=== PATIENT | female | born 1960 | race Caucasian/White ===

== ENCOUNTER → 2016-05-05 | Day surgery (SDC) | payer BC ==
--- NOTE | 2016-04-30 14:54 | HP ---
PREOPERATIVE HISTORY AND PHYSICAL: DATE OF SURGERY/ADMISSION: 05/05/16 [facility] DATE OF OFFICE VISIT/ENCOUNTER: 04/29/16 ATTENDING SURGEON: Joanie Burns MD PROCEDURE: Right index, middle, ring finger trigger releases. CHIEF COMPLAINT: Triggering of right index, middle, and ring fingers. 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 It bothers her when she uses spray bottles, wash bottles, syringes, and the computer which she has to do at work. There was no specific injury. She has to perform repeated motions with this hand at work and experiences the catching, clicking, and locking on a regular basis. She is interested in pursuing surgical intervention at this time for treatment of her trigger fingers. PAST MEDICAL HISTORY: 1. Psoriasis and psoriatic arthritis. 2. Hypertension. 3. Prediabetes. 4. Ulcerative colitis. 5. Spondylolisthesis. 6. Asthma. 7. GERD. 8. History of a concussion in 2014. PAST SURGICAL HISTORY: 1. Right de Quervain's release. 2. Right carpal tunnel release. 3. [place] teeth extraction. 4. Tubal ligation. MEDICATIONS: 1. Diclofenac sodium 1%, use as directed. 2. Diltiazem CD 180 mg daily. 3. Escitalopram oxalate 10 mg daily. 4. Folic acid 1 mg daily. 5. Leucovorin calcium 1 tab weekly. 6. Lisinopril-hydrochlorothiazide 20-12.5 mg 2 tabs daily. 7. Magnesium 500 mg 1 tab daily. 8. Metformin HCl ER 500 mg daily. 9. Methotrexate 2.5 mg 6 tabs per week. 10. Multivitamin daily. 11. Potassium chloride ER 8 mEq 1 tab daily. 12. Prilosec 10 mg 1 tab daily. 13. Riboflavin 50 mg daily. 14. Simponi 50 mg-0.5 mL, inject as directed. 15. Singulair 10 mg daily. 16. Zyrtec Allergy 10 mg daily. ALLERGIES: No known drug allergies. There is an allergy to LATEX. FAMILY MEDICAL HISTORY: Heart disease, COPD, lung/esophageal cancer, and rheumatoid arthritis. SOCIAL HISTORY: The patient is employed at [employer] as a earth science laboratory technician for [employer]. She denies tobacco use. She denies current illicit drug use ; however, she has been approved to soon begin medical marijuana. She does admit to drinking alcohol on a regular occasion. REVIEW OF SYSTEMS: General: Negative for fevers, chills, or night sweats. With anesthesia in the past, she reports feeling like she has awakened during procedures in the past. HEENT: Positive for headaches. Negative for lightheadedness or syncopal episodes. Integumentary: Positive for psoriasis with current lesions on bilateral hands. Cardiothoracic: Positive for hypertension. Negative for chest pain, palpitations, or edema. Pulmonary: Positive for asthma and shortness of breath with exertion. Negative for chronic cough or COPD. GI: Positive for ulcerative colitis with nausea, vomiting, diarrhea, constipation, and positive for GERD. : Negative for nocturia, urinary frequency, urgency, history of UTIs, or kidney problems. Musculoskeletal: Positive for current complaint. Positive for intermittent back pain related to spondylolisthesis. Negative for history of fractures. Neurological: Positive for history of concussion in 2015. Negative for paresthesias, numbness, history of seizure, stroke, or epilepsy. Endocrine: Positive for prediabetes. Negative for thyroid issues. Hematologic: Negative for easy bruising, anemia, excessive bleeding, or history of DVT. Infectious Disease: Negative for history of MRSA, hepatitis C, or HIV. PHYSICAL EXAMINATION GENERAL: Well-developed, well-nourished, 55-year-old female, in no acute distress. VITAL SIGNS: 5 feet 3 inches, weight 215 pounds, blood pressure 144/87, and pulse rate 68. HEENT: Normocephalic, atraumatic. Pupils are equal, round, and reactive to light. Extraocular movements are intact. Throat is clear. NECK: Supple. No palpable lymph nodes. PULMONARY: Lungs are clear to auscultation bilaterally. No wheezes, rales, or rhonchi. CARDIOTHORACIC: Regular rate and rhythm. S1, S2. No murmurs, rubs, or gallops. No edema. ABDOMEN: Positive bowel sounds, soft, nontender. MUSCULOSKELETAL: On exam of her right upper extremity and her hand, she has tenderness at the A1 syed of the index, middle, and ring fingers. She has difficulty making a full tight fist. She lacks a bit of extension of all 3 fingers. Neurovascular function is intact. She does have psoriatic lesions that cover the more proximal portion of her hand with some breaks in the skin. NEUROLOGIC: Alert and oriented x3. Cranial nerves II through XII are intact. Sensation is intact to light touch. IMPRESSION: Right hand index, middle, and ring finger trigger fingers. PLAN: The patient is scheduled to undergo right index, middle, and ring finger trigger release with Dr. Burns on 05/05/16. She will return to the office 10 to 14 days postop for followup and suture removal. A prescription for Ultracet was e-scribed to the patient's pharmacy for postoperative pain management. BASSAM PLATT [id number]/[facility] #: [id number] MTDD
[~2016-05-05] MED LIST: Buffered Lidocaine 1% SYR 3ML* 3 ML/SYR SYRINGE INTRADERM ONE; Lidocaine 1% INJ* 10 MG/ML 30 ML SDV ONE; Lidocaine 2% PF * 5 ML VIAL ONE; Midazolam* 1 MG/ML 2 ML VIAL (2 MG) ONE; Propofol* 10 MG/ML 20 ML BTL IV PUSH ONE; fentaNYL* 50 MCG/ML 2 ML VIAL (100 MCG VIAL) ONE
[2016-05-05 11:42] VITALS: BP 118/66
--- NOTE | 2016-05-06 01:17 | OP ---
DATE OF OPERATION: 05/05/16 [facility] DATE OF : 58 SURGEON: Joanie Burns MD PLASTIC PRESS MOLDER: BASSAM Diamond ANESTHESIOLOGIST: Dejon Vaca DO ANESTHESIA: Local MAC. PRE-OP DIAGNOSIS: Trigger finger right index, long, and ring fingers. POST-OP DIAGNOSIS: Trigger finger right index, long, and ring fingers. OPERATIVE PROCEDURE: Right index, long, and ring finger trigger release. ESTIMATED BLOOD LOSS: Zero. TOURNIQUET TIME: About 10 minutes. INDICATIONS: Patito is a 55-year-old female with locking and triggering of her index, long, and ring fingers of the right hand. She presents for trigger finger release. DESCRIPTION OF PROCEDURE: The patient was brought to the operating room, was given a sedation anesthetic, and a local infiltration with 10 cc of 1% plain lidocaine in the palm of her right hand. The skin of her right hand and forearm was prepped and draped in the usual sterile fashion. The hand and forearm were exsanguinated and the tourniquet elevated to 250 mmHg. A transverse incision was made centered over the A1 syed to the index, middle and long fingers, dissected bluntly through the subcutaneous tissue down to the three A1 pulleys. Each syed was incised longitudinally completely releasing the tendons, which were all in good condition. The wound was irrigated and the skin edges reapproximated with 4-0 nylon suture. The wound was dressed with Xeroform, 4x4, Webril, and an Carmelo wrap. The patient tolerated the procedure well and was brought to the recovery room in good condition. [id number]/[facility] #: [id number] [facility] HOSPITALMaribell
== END | disposition home or self-care (01) ==
LOC: OREAST 08:53
PROVIDERS: ATTEND Orthopaedic Surgery
DX: M65.321 Trigger finger, right index finger (principal); M65.341 Trigger finger, right ring finger; M65.331 Trigger finger, right middle finger; I10 Essential (primary) hypertension; E11.9 Type 2 diabetes mellitus without complications; L40.50 Arthropathic psoriasis, unspecified
CPT/HCPCS: J2250; J2704; J3010

== ENCOUNTER 2016-05-08 10:02 | Inpatient (IN) | payer BC ==
[2016-05-08] MEDS: oxyCODONE/Acetamin 5/325 MG* TAB PO PRN ×3 (10:54→20:25)
[2016-05-08 11:28] LABS: Hematocrit 40 % (35-47); Mean Corpuscular HGB Conc 33 g/dl (31-36); Mean Corpuscular Hemoglobin 30 pg (27-31); Mean Corpuscular Volume 91 fL (80-97); Mean Platelet Volume 10 um3 (7.4-10.4); Red Blood Count 4.32 10^6/ul (4.0-5.4); Red Cell Distribution Width 13 % (10.5-15); White Blood Count 14.5 10^3/ul (3.5-10.8)
[2016-05-08] MEDS: Morphine INJ* 2 MG/ML 1 ML SYRINGE IV PRN ×3 (11:54→18:49)
[2016-05-08] MEDS: Morphine INJ* 2 MG/ML 1 ML SYRINGE ONE ×2 (11:54→12:35)
[2016-05-08] MEDS ORDERED: Piperac/Tazob 3.375 gm in NS* 3.375 GM/100 ML BAG IVPB ONE (12:00)
[2016-05-08] MEDS ORDERED: Vancomycin per Pharmacy* NOTE FOLLOW UP PRN (12:01)
[2016-05-08] MEDS ORDERED: Vancomycin(*) 1,500 MG in NS 0.9% 250 ML* 250 ML IVPB SCH (12:30)
[2016-05-08 13:50] LABS: Erythrocyte Sed Rate 43 mm/Hr (0-30)
[2016-05-08] MEDS ORDERED: Vancomycin(*) 1,500 MG in NS 0.9% 250 ML* 250 ML IVPB ONE (14:00)
--- NOTE | 2016-05-08 14:33 | HP ---
HISTORY AND PHYSICAL: DATE OF ADMISSION: 05/08/16 HISTORY OF PRESENT ILLNESS: Patito is an active 55-year-old woman who is 3 days out from a transverse release of trigger fingers, right hand, numbers 2, 3, and 4. Yesterday, she was seen by her surgeon, who prescribed Keflex for postoperative pain and erythema, but today, she called me as the on-call physician and came in today with extreme pain. At this point, she appears to have some flexor tendon involvement of the middle and ring finger of the right hand and increased drainage from the wound. Because of her generalized immunocompromise status, she will be admitted for IV antibiotics, n.p.o. status , possible debridement. PROBLEM LIST: Includes: 1. Some endocarditis at age 1. 2. History of head contusion and concussion. 3. She has had psoriatic arthritis for many years, being followed by Dr[facility]. She says her blood glucose is borderline. 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 Otherwise medical history includes: 1. Hyperlipidemia. 2. Hypertension. 3. Anxiety. 4. Spondylosis. 5. Psoriatic arthritis. MEDICATIONS: Patito's medications are multiple includin. Tramadol. 2. Diltiazem 180 mg per day. 3. Lisinopril 20/12.5 mg 2 tabs daily. 4. Simponi 50 mg injections once a month, being held for the last 6 weeks. 5. Escitalopram 10 mg per day. 6. Metformin 500 mg per day. 7. Methotrexate 2.5 mg 6 tabs once per week. 8. Folic acid. 9. Zyrtec p.r.n. 10. Prilosec p.r.n. ALLERGIES: She denies drug allergies. PHYSICAL EXAMINATION GENERAL: She is in mild distress, tearing, and complaining of severe pain, right hand. VITAL SIGNS: Shows her to have a heart rate of 102, blood pressure 160/90, temperature 99.7. HEENT: Her oropharynx is clear. NECK: Supple. CHEST: Clear to auscultation in all lung wheeler. CARDIAC: Shows a regular rate and no S3, S4 noted. ABDOMEN: Distended, soft, nontender. EXTREMITIES: Show the right hand with a transverse palmar incision. Some mild dorsal edema. No tenderness dorsally. She has significant tenderness along the third and fourth digits, palmar aspect, and severe pain with any attempted passive extension of the third and fourth. The wound itself is puckered and there is slight drainage. Index finger and thumb did not appear to be involved. IMPRESSION: The patient with postoperative wound infection. In general, generalized immunocompromised patient. Plan will be admission for IV antibiotics, n.p.o. status, and possible debridement, right hand. [id number]/[facility] #: [id number] MTDD
[2016-05-08] MEDS ORDERED: Ketorolac INJ* 30 MG/ML 1 ML VIAL ONE (15:05)
[2016-05-08] MEDS: Ketorolac INJ* 30 MG/ML 1 ML VIAL IV PRN ×2 (15:16→21:29)
[2016-05-08] MEDS: ceFAZolin 2 GM PREMIX(*) 2 GM/50 ML BAG IVPB SCH (17:07)
[2016-05-08] MEDS ORDERED: Piperac/Tazob 3.375 gm in NS* 3.375 GM/100 ML BAG IVPB SCH (18:00)
[2016-05-09] MEDS: oxyCODONE/Acetamin 5/325 MG* TAB PO PRN ×5 (00:32→22:21)
[2016-05-09] MEDS: ceFAZolin 2 GM PREMIX(*) 2 GM/50 ML BAG IVPB SCH ×3 (00:35→16:10)
[2016-05-09] MEDS: Ketorolac INJ* 30 MG/ML 1 ML VIAL IV PRN ×4 (04:27→22:23)
[2016-05-09] MEDS ORDERED: Lidocaine 1% INJ* 10 MG/ML 30 ML SDV ONE (07:48)
[2016-05-09] MEDS ORDERED: Midazolam* 1 MG/ML 5 ML VIAL (5 MG) ONE (08:08)
[2016-05-09] MEDS ORDERED: fentaNYL* 50 MCG/ML 2 ML VIAL (100 MCG VIAL) ONE ×4 (08:08→09:38)
[2016-05-09] MEDS ORDERED: Midazolam* 1 MG/ML 2 ML VIAL (2 MG) ONE (08:31)
[2016-05-09] MEDS ORDERED: Propofol* 10 MG/ML 20 ML BTL IV PUSH ONE (08:47)
[2016-05-09] MEDS ORDERED: Ondansetron INJ* 2 MG/ML VIAL IV PRN (08:52)
[2016-05-09] MEDS ORDERED: Metoclopramide IV* 5 MG/ML 2 ML VIAL IV PRN (08:52)
[2016-05-09] MEDS ORDERED: Scopolamine 1.5 mg* PATCH TRANSDERM PRN (08:52)
[2016-05-09] MEDS ORDERED: Morphine INJ* 10 MG/ML 1 ML SYRINGE ONE (09:06)
[2016-05-09] MEDS ORDERED: oxyCODONE/Acetamin 5/325 MG* TAB ONE (09:07)
[2016-05-09] MEDS: Morphine INJ* 2 MG/ML 1 ML SYRINGE IV PRN ×6 (09:11→23:54)
[2016-05-09] MEDS ORDERED: Ketorolac INJ* 30 MG/ML 1 ML VIAL ONE (10:02)
[2016-05-10] MEDS: ceFAZolin 2 GM PREMIX(*) 2 GM/50 ML BAG IVPB SCH ×2 (00:20→07:52)
[2016-05-10] MEDS: oxyCODONE/Acetamin 5/325 MG* TAB PO PRN ×2 (03:41→08:02)
[2016-05-10] MEDS: Morphine INJ* 2 MG/ML 1 ML SYRINGE IV PRN ×2 (03:42→08:03)
[2016-05-10] MEDS: Ketorolac INJ* 30 MG/ML 1 ML VIAL IV PRN (05:04)
[2016-05-10 08:37] VITALS: BP 148/88
--- NOTE | 2016-06-26 01:46 | DS ---
DISCHARGE SUMMARY: DATE OF ADMISSION: 05/08/16 DATE OF DISCHARGE: 05/10/16 CHIEF COMPLAINT: Right hand pain. HISTORY OF PRESENT ILLNESS: Patito is a 55-year-old woman who had trigger finger releases and has developed a postop wound infection. She was admitted to the hospital for care of that. HOSPITAL COURSE: The patient was admitted to the hospital and was started on IV antibiotics. Some of her sutures were removed and then next day, she was brought to the operating room for I and D of the right hand. Postoperatively, she did very well. Her pain was well controlled and she was discharged to home with oral medication and appropriate antibiotics. She will follow up in my office in a couple of days for wound check and then start soaking her wound. The patient's symptoms were well controlled upon discharge. [id number]/[facility] #: [id number] MTDD
--- NOTE | 2016-06-26 01:55 | OP ---
DATE OF OPERATION: 05/09/16 - ROOM #333 DATE OF : 58 SURGEON: Joanie Burns MD STILL CLEANER: BASSAM Shelby ANESTHESIA: Local MAC. PRE-OP DIAGNOSIS: Postop wound infection of the right hand status post trigger finger release. POST-OP DIAGNOSIS: Postop wound infection of the right hand status post trigger finger release. OPERATIVE PROCEDURE: Right hand I and D. INDICATIONS: Patito is a 55-year-old woman who had trigger finger releases, a few days later developed marked pain and drainage from her wound. She presents for I and D. ESTIMATED BLOOD LOSS: Zero. TOURNIQUET TIME: About 25 minutes. DESCRIPTION OF PROCEDURE: The patient was brought to the operating room, was given a general anesthetic, placed in the supine position on the operating table with a tourniquet around her right upper arm. The hand was elevated and exsanguinated and the tourniquet elevated to 250 mmHg. The wound was irrigated copiously after cultures were obtained. It was loosely closed with 4-0 nylon suture over a small drain and then dressed with Xeroform, 4x4, Webril, and an Carmelo wrap. The patient tolerated the procedure well, was brought to the recovery room in good condition. [id number]/[facility] #: [id number] MTDMaribell
== END 2016-05-10 09:25 | disposition home or self-care (01) | DRG 711 ==
LOC: SSU 10:34 → UNDODISIN 05-09 11:30
PROVIDERS: ADMIT Orthopaedic Surgery; ATTEND Orthopaedic Surgery
PROC: 0J9J00Z Drainage of Right Hand Subcutaneous Tissue and Fascia with Drainage Device, Open Approach (ICD-10-PCS; principal; 2016-05-09 08:00)
DX: T81.4XXA Infection following a procedure, initial encounter (principal); L40.50 Arthropathic psoriasis, unspecified; I10 Essential (primary) hypertension; B95.61 Methicillin susceptible Staphylococcus aureus infection as the cause of diseases classified elsewhere; Y83.8 Other surgical procedures as the cause of abnormal reaction of the patient, or of later complication, without mention of misadventure at the time of the procedure; Y92.9 Unspecified place or not applicable; E78.5 Hyperlipidemia, unspecified; F41.9 Anxiety disorder, unspecified; M47.9 Spondylosis, unspecified; Z79.1 Long term (current) use of non-steroidal anti-inflammatories (NSAID); Z79.899 Other long term (current) drug therapy
CPT/HCPCS: 36415; 85025; 85652; 86140; 87070; 87077; 87186; 87205; 87640; 87641; A9270-GY; J0690; J1885; J2001; J2250; J2270; J2543; J2704; J3010; J3370

== ENCOUNTER 2016-10-06 07:23 | Emergency (ER) | payer BC ==
[2016-10-06 07:38] VITALS: BP 175/92
--- NOTE | 2016-10-06 08:05 | UC ---
sadia Gonzalez Timothy, scribed for Cristina Murdock MD on 10/06/16 at 0746 . FLU HPI - HPI Summary HPI Summary: Patito Spencer is a 55 yo female presenting to [facility] with cough, wheeze for the past 2.5 weeks with progression over last 2 days. She states there is 3/10 discomfort in her lungs with movement, and she also has productive cough with clear/white sputum. Pt reports 4/10 AGUAYO but denies fever, chills, blood in her sputum, or rash. She has some mild sore throat and bilateral ear pain. She claims a Hx of pleurisy, and that her Sx currently feel similar to what she is experiencing now. She has self-medicated with Tylenol and other OTC cough medications with temporary relief. Pt with a h/o asthma - She states her Sx began after exposure to a perfume worn by a person. She has a nebulizer at home which she uses 2-3x per day, but is out of albuterol nebules. Pt has been MDI which she has been using. She states that while she does not smoke tobacco, she was raised in a household with smoke exposure. Pt is on oral steroid for UC. Her MHx includes endocarditis, heart murmur, HTN, asthma, chronic bronchitis, GERD, ulcerative colitis, tubal ligation, psoriatic arthritis, DM, depression, anxiety. Pt medication list reviewed this visit. - History of Current Complaint Stated Complaint: CONGESTION Time Seen by Provider: 10/06/16 07:48 Hx Obtained From: Patient Onset/Duration: Gradual Onset, Lasting Weeks Severity Currently: Moderate Severity Initially: Moderate Pain Intensity: 4 Pain Scale Used: 0-10 Numeric - 4/10 AGUAYO, 3/10 lung discomfort Associated Signs & Symptoms: Positive: Cough, Sore Throat, Nasal Congestion, Headache. Negative: Fever, F/C, Vomiting, Diarrhea - Allergy/Home Medications Allergies/Adverse Reactions: Allergies Allergy/AdvReac Type Severity Reaction Status Date / Time Latex Allergy Severe Anaphylatic Verified 10/06/16 07:38 Shock Molds & Smuts Allergy Severe Congestion Verified 10/06/16 07:38 trees Allergy Congestion Uncoded 10/06/16 07:38 Home Medications: Home Medications Budesonide [Entocort EC] 3 tab PO DAILY 10/06/16 [History Confirmed 10/06/16] Cbd Oil 0.4 mg PO DAILY 10/06/16 [History Confirmed 10/06/16] Hydroxychloroquine TAB* [Plaquenil TAB*] 2 tab PO DAILY 10/06/16 [History Confirmed 10/06/16] Mesalamine (NF) [Lialda (NF)] 4 tab PO DAILY 10/06/16 [History Confirmed ] Phenylephrine-Guaifenesin [Guaifenesin/Phenylephrine 10-400 mg] 2 tab PO Q4HR PRN 10/06/16 [History Confirmed 10/06/16] Potassium Chloride [Klor-Con Sprinkle] 1 tab PO DAILY 10/06/16 [History Confirmed 10/06/16] PMH/Surg Hx/FS Hx/Imm Hx Previously Healthy: No Endocrine History: Diabetes - borderline Cardiovascular History: Cardiac Disease, Hypertension, Other - murmur Other Cardiovascular History: murmur Respiratory History: Asthma, Bronchitis, Other Other Respiratory History: pleurisy GI/ History: Gastroesophageal Reflux, Ulcer Psychological History: Anxiety, Depression - Surgical History Surgical History: Yes Surgery Procedure, Year, and Place: wisdom teeth 1978 [facility]; tubal ligation 1992 [facility]; carpal tunnel 2003 [facility]; de quervain tendonitis 2005 [facility]; NERVE ABLATION - SPINAL; TONSILECTOMY 2014. 34 COLONOSCOPIES; Trigger finger release- right hand - Family History Known Family History: Positive: Cardiac Disease - father - 5 [place], Diabetes, Respiratory Disease - COPD, Other - breast CA, RA, OA, - Social History Alcohol Use: Weekly Alcohol Amount: 2-3times week Substance Use Type: Marijuana Substance Use Comment - Amount & Last Used: Medical Smoking Status (MU): Never Smoked Tobacco Have You Smoked in the Last Year: No - Immunization History Most Recent Influenza Vaccination: 03/2015 Most Recent Tetanus Shot: 2016 Most Recent Pneumonia Vaccination: 2016 Review of Systems Constitutional: Negative Skin: Other - left thumb laceration Eyes: Negative ENT: Sore Throat, Ear Ache, Nasal Discharge - clear, thick, Sinus Congestion Respiratory: Cough - productive, Other - lung discomfort with breathing Cardiovascular: Negative Gastrointestinal: Negative Genitourinary: Negative Motor: Negative Neurovascular: Negative Musculoskeletal: Negative Neurological: Negative Psychological: Negative All Other Systems Reviewed And Are Negative: Yes Physical Exam Triage Information Reviewed: Yes Appearance: Well-Appearing, No Pain Distress, Well-Nourished Vital Signs: Initial Vital Signs Temp 97.8 F 10/06/16 07:28 Pulse 71 10/06/16 07:28 Resp 20 10/06/16 07:28 BP 175/92 10/06/16 07:28 Pulse Ox 99 10/06/16 07:28 Vital Signs Reviewed: Yes Eye Exam: Normal Eyes: Positive: Conjunctiva Clear ENT: Positive: TMs normal - turbinates inflammed and boggy + PND No exudate, no erythema Neck exam: Normal Neck: Positive: Supple, Nontender, No Lymphadenopathy Respiratory Exam: Normal Respiratory: Positive: Chest non-tender, Normal breath sounds, Wheezing - scattered wheeze coarse cough No accessory muscle use speaking full,easy sentences Cardiovascular Exam: Normal Cardiovascular: Positive: RRR, No Murmur, Pulses Normal Abdominal Exam: Normal Abdomen Description: Positive: Nontender, No Organomegaly, Soft Bowel Sounds: Positive: Present Musculoskeletal Exam: Normal Neurological Exam: Normal Neurological: Positive: Alert Psychological Exam: Normal Skin Exam: Normal Flu Course/Dx - Course Course Of Treatment: Jacquelyn Spencer is a 55 yo female presenting to [facility] with nasal discharge, cough for the past 2.5 weeks, gradually getting thicker accompanied by productive cough, mild sore throat, mild bilateral ear pain, 4/10 AGUAYO, and 3/ 10 lung discomfort with movement. Pt with h/o asthma, on steroids and immunosuppressant for UC. abx. albuterol secretion hygeine. pcp f/u. return prn - Differential Dx/Diagnosis Differential Diagnosis/HQI/PQRI: Bronchitis, Other - pleurisy Provider Diagnoses: Bronchitis Discharge - Discharge Plan Condition: Stable Disposition: HOME Prescriptions: Albuterol 2.5MG/3ML (0.083%)* [Ventolin 2.5 MG/3 ML NEB.GALO*] 2.5 mg INH Q4H PRN #30 neb.galo PRN Reason: Wheezing Azithromycin TAB* [Zithromax TAB (Z-AMY) 250 mg #6 tabs] 2 tab PO .TODAY, THEN 1 DAILY #1 amy Patient Education Materials: Acute Bronchitis (ED) Referrals: Silvia Leonardo NP [Primary Care Provider] - 2 Days Additional Instructions: - Stay well hydrated - drink plenty of non-alcoholic, non- caffinated beverages - Take antibiotics as prescribed until gone - After you have been on antibiotics for 2 days, change your toothbrush and your pillowcase - Okay to take over the counter cough and cold medications. Okay to take tylenol every 6 hours as needed for discomfort - Use your albuterol every 4-6 for wheezing Please follow up with your primary care physician regarding your visit to urgent care today. Return to urgent care or the emergency department with any questions or concerns. The documentation as recorded by the sadia alcaraz Timothy accurately reflects the service I personally performed and the decisions made by , Cristina Murdock MD.
== END 2016-10-06 08:12 | disposition home or self-care (01) ==
LOC: UCEAST 07:23
DX: J20.9 Acute bronchitis, unspecified (principal); J42 Unspecified chronic bronchitis; R01.1 Cardiac murmur, unspecified; I38 Endocarditis, valve unspecified; I10 Essential (primary) hypertension; J45.909 Unspecified asthma, uncomplicated; K21.9 Gastro-esophageal reflux disease without esophagitis; K51.90 Ulcerative colitis, unspecified, without complications; L40.50 Arthropathic psoriasis, unspecified; E11.9 Type 2 diabetes mellitus without complications; F41.8 Other specified anxiety disorders; Z79.51 Long term (current) use of inhaled steroids
CPT/HCPCS: 99212; G0463

== ENCOUNTER 2016-10-08 10:12 | Emergency (ER) | payer BC ==
--- NOTE | 2016-10-08 10:50 | UC ---
Respiratory Complaint HPI - HPI Summary HPI Summary: Approx 2 weeks ago started having nasal congestion, asthma symptoms, cough, and increasing mucus production. Pt reports "chronic bronchitis" though she has been doing much better since her tonsillectomy. Denies fever. Seen here 2 days ago and put on nebulized albuterol and z-melissa. "Lung pain" and cough are improved , but pt feels worse "in every other way." Also feeling dizzy/vertigo, thinks she has fluid in her ears. - History of Current Complaint Chief Complaint: UCRespiratory Stated Complaint: CONGESTION COUGH Time Seen by Provider: 10/08/16 10:29 Hx Obtained From: Patient ?: No Onset/Duration: Gradual Onset, Lasting Weeks Timing: Constant Severity Initially: Mild Severity Currently: Moderate Character: Cough: Productive Aggravating Factors: Deep Breaths, Recumbent Position Alleviating Factors: Upright Position Associated Signs And Symptoms: Positive: Pleuritic Chest Pain, Wheezing, URI, Nasal Congestion. Negative: Fever, Chills - Allergies/Home Medications Allergies/Adverse Reactions: Allergies Allergy/AdvReac Type Severity Reaction Status Date / Time Latex Allergy Severe Anaphylatic Verified 10/06/16 07:38 Shock Molds & Smuts Allergy Severe Congestion Verified 10/06/16 07:38 trees Allergy Congestion Uncoded 10/06/16 07:38 PMH/Surg Hx/FS Hx/Imm Hx Endocrine History: Diabetes, Dyslipidemia Respiratory History: COPD, Asthma GI/ History: Other - UC Other GI/ History: uc - Surgical History Surgical History: Yes Surgery Procedure, Year, and Place: wisdom teeth 1978 [facility]; tubal ligation 1992 [facility]; carpal tunnel 2003 [facility]; de quervain tendonitis 2005 [facility]; NERVE ABLATION - SPINAL; TONSILECTOMY 2014. 33 COLONOSCOPIES; Trigger finger release- right hand - Family History Known Family History: Positive: Cardiac Disease - father - 5 [place], Diabetes, Respiratory Disease - COPD, Other - breast CA, RA, OA, - Social History Lives: With Family Alcohol Use: Weekly Alcohol Amount: 2-3times week Substance Use Type: Marijuana Substance Use Comment - Amount & Last Used: Medical Smoking Status (MU): Never Smoked Tobacco Have You Smoked in the Last Year: No - Immunization History Most Recent Influenza Vaccination: 03/2015 Most Recent Tetanus Shot: 2016 Most Recent Pneumonia Vaccination: 2016 Review of Systems Constitutional: Fatigue Skin: Negative Eyes: Negative ENT: Sore Throat, Nasal Discharge Respiratory: Cough Cardiovascular: Negative Gastrointestinal: Negative Genitourinary: Negative Motor: Negative Neurovascular: Negative Musculoskeletal: Negative Neurological: Negative Psychological: Negative All Other Systems Reviewed And Are Negative: Yes Physical Exam Triage Information Reviewed: Yes Appearance: Well-Appearing, Obese Vital Signs: Initial Vital Signs Temp 98 F 10/08/16 10:14 Pulse 87 10/08/16 10:14 Resp 22 10/08/16 10:14 BP 183/115 10/08/16 10:14 Pulse Ox 98 10/08/16 10:14 Vital Signs Reviewed: Yes Eye Exam: Normal Eyes: Positive: Conjunctiva Clear ENT: Positive: Hearing grossly normal, Pharynx normal, Nasal congestion, TMs normal. Negative: Nasal drainage, Tonsillar swelling - s/p tonsillectomy Dental Exam: Normal Neck exam: Normal Neck: Positive: Supple, Nontender, No Lymphadenopathy Respiratory Exam: Other - good air movement, no cough noted Respiratory: Positive: Chest non-tender, Lungs clear, Normal breath sounds, No respiratory distress, No accessory muscle use Cardiovascular Exam: Normal Cardiovascular: Positive: RRR, No Murmur Musculoskeletal Exam: Normal Neurological Exam: Normal Neurological: Positive: Alert Psychological Exam: Normal Skin Exam: Normal UC Diagnostic Evaluation - Laboratory O2 Sat by Pulse Oximetry: 98 Respiratory Course/Dx - Differential Dx/Diagnosis Provider Diagnoses: bronchitis. asthma exacerbation. elevated blood pressure due to medication Discharge - Discharge Plan Condition: Stable Disposition: HOME Prescriptions: Pseudoephedrine-Guaifenesin [Mucinex D 60-600 mg] 1 tab PO BID #20 tab predniSONE TAB* [Deltasone TAB*] 50 mg PO DAILY #3 tab Patient Education Materials: Acute Bronchitis (ED), Wheezing (ED) Referrals: Silvia Leonardo NP [Primary Care Provider] - Additional Instructions: Call or return if you develop increasing fever, shortness of breath, chest pain , bloody sputum, or otherwise worsen. If you have not improved at all after several days, contact your primary care physician or return here. YOU CAN CALL AND LEAVE ME A MESSAGE ON WEDNESDAY OR WEDNESDAY IF YOU DO NOT HAVE ADEQUATE IMPROVEMENT WITH THE ORAL STEROIDS. I WILL CONSIDER CHANGING YOUR ANTIBIOTIC IF THAT HAPPENS.
--- NOTE | 2016-10-08 11:24 | RAD ---
INDICATION: Cough pain for aspiration for 2 weeks. COMPARISON: Comparison is made with prior study from June 08, 2012. TECHNIQUE: Dual-energy PA and lateral views of the chest were obtained. FINDINGS: The heart is within normal limits in size. Mediastinal and hilar contours appear within normal limits. The lungs are clear. No pleural effusion is present. IMPRESSION: NO EVIDENCE FOR ACTIVE CARDIOPULMONARY DISEASE.
[2016-10-08 11:36] VITALS: BP 175/100
== END 2016-10-08 11:36 | disposition home or self-care (01) ==
LOC: UCEAST 10:12
DX: J40 Bronchitis, not specified as acute or chronic (principal); J45.901 Unspecified asthma with (acute) exacerbation; J44.9 Chronic obstructive pulmonary disease, unspecified; R03.0 Elevated blood-pressure reading, without diagnosis of hypertension; E11.9 Type 2 diabetes mellitus without complications; E78.5 Hyperlipidemia, unspecified
CPT/HCPCS: 71020; 99212; G0463

== ENCOUNTER 2017-08-30 18:07 | Emergency (ER) | payer BC, OTHER ==
[2017-08-30 18:20] VITALS: BP 177/90
--- NOTE | 2017-08-30 18:33 | UC ---
Throat Pain/Nasal Efraín HPI - HPI Summary HPI Summary: 56 y/o female presents to the urgent care c/o dry cough w/ nasal congestion and yellowish nasal discharge for the past week. Pt reports Hx asthma and she had mild wheezing yesterday. She has been doing the nebulizer Tx to alleviate wheezing and cough. Pt state +PND and cough worsen since 08/26/5017 and has been persistent that she thinks it is exacerbating her asthma. Pt has not taking her BP medication today. Pt had low grade fever at the beginning of symptoms. Pt has taking MUcinex and Tylenol PO to alleviate symptoms. Pt denies SOB, chest pain , abdominal pain, N/V/D. - History of Current Complaint Chief Complaint: UCGeneralIllness Stated Complaint: SINUS CONGESTION Time Seen by Provider: 08/30/17 18:24 Hx Obtained From: Patient ?: No - menopausal Onset/Duration: Gradual Onset, Lasting Weeks Severity: Mild Pain Intensity: 4 Pain Scale Used: 0-10 Numeric Cough: Nonproductive Associated Signs & Symptoms: Positive: Wheezing, Sinus Discomfort, Nasal Discharge - yellowish Related History: Seasonal Allergies - Epiglottits Risk Factors Epiglottis Risk Factors: Negative - Allergies/Home Medications Allergies/Adverse Reactions: Allergies Allergy/AdvReac Type Severity Reaction Status Date / Time Latex, Natural Rubber Allergy Congestion Verified 08/30/17 18:21 mold Allergy Congestion Verified 08/30/17 18:21 trees Allergy Congestion Uncoded 05/26/17 10:47 Home Medications: Home Medications Ustekinumab [Stelara] 90 mg IM MONTHLY 08/30/17 [History Confirmed 08/30/17] PMH/Surg Hx/FS Hx/Imm Hx Previously Healthy: Yes Other Endocrine History: RA Cardiovascular History: Hypertension Respiratory History: Asthma GI/ History: Gastroesophageal Reflux Psychological History: Anxiety, Depression - Surgical History Surgical History: Yes Surgery Procedure, Year, and Place: wisdom teeth 1978 [facility]; tubal ligation 1992 [facility]; carpal tunnel 2003 [facility]; de quervain tendonitis 2005 [facility]; NERVE ABLATION - SPINAL; TONSILECTOMY 2014. 34 COLONOSCOPIES; Trigger finger release- right hand - Family History Known Family History: Positive: Cardiac Disease - father - 5 [place], Diabetes, Respiratory Disease - COPD, Other - breast CA, RA, OA, - Social History Occupation: Employed Full-time Lives: With Family Alcohol Use: Weekly Alcohol Amount: 2-3times week Substance Use Type: Marijuana Substance Use Comment - Amount & Last Used: Medical Smoking Status (MU): Never Smoked Tobacco Have You Smoked in the Last Year: No - Immunization History Most Recent Influenza Vaccination: 03/2015 Most Recent Tetanus Shot: 2016 Most Recent Pneumonia Vaccination: 2016 Review of Systems Constitutional: Negative Skin: Negative Eyes: Negative ENT: Nasal Discharge - yellowish, Sinus Congestion, Sinus Pain/Tenderness Respiratory: Cough - dry, Other - wheezing Cardiovascular: Negative Gastrointestinal: Negative Genitourinary: Negative Motor: Negative Neurovascular: Negative Musculoskeletal: Negative Neurological: Negative Psychological: Negative Is Patient Immunocompromised?: No All Other Systems Reviewed And Are Negative: Yes Physical Exam - Summary Physical Exam Summary: Vital Signs Reviewed: Yes General: well developed, well nourished female sitting in the examining table w/ o any apparent distress Eyes: Positive: Conjunctiva Clear - PERRLA, EOMI, fundi grossly normal ENT: Positive: Normal ENT inspection, Hearing grossly normal, Pharynx normal, Nasal congestion - edematous and erythematous nasal mucosa, Nasal drainage - yellowish drainage, Positive tenderness over the frontal and maxillary sinuses.+ yellowish PND. TMs normal. Negative: Tonsillar swelling, Tonsillar exudate Neck: Positive: Supple, Nontender, No Lymphadenopathy Respiratory: no orthopnea or dyspnea. Able to speak in full sentences, no retractions or accessory muscle use, no tripod position, stridor, or head bobbing. Positive breath sounds bilaterally, mild wheezing in the anterior upper lung , no rhonchi, rales or crackles. Cardiovascular: Positive: RRR, No Murmur, Pulses Normal, Brisk Capillary Refill Abdomen Description: Positive: Nontender, No Organomegaly, Soft. Negative: CVA Tenderness (R), CVA Tenderness (L) Bowel Sounds: Positive: Present Musculoskeletal Exam: Normal Musculoskeletal: Positive: Strength Intact, ROM Intact, No Edema Neurological Exam: Normal Psychological Exam: Normal Skin Exam: Normal Triage Information Reviewed: Yes Vital Signs: Initial Vital Signs Temp 97.6 F 08/30/17 18:14 Pulse 90 08/30/17 18:14 Resp 18 08/30/17 18:14 BP 177/90 08/30/17 18:14 Pulse Ox 99 08/30/17 18:14 Throat Pain/Nasal Course/Dx - Course Course Of Treatment: 56 y/o female presents to the urgent care c/o dry cough w/ nasal congestion and yellowish nasal discharge for the past week. Pt reports Hx asthma and she had mild wheezing yesterday. She has been doing the nebulizer Tx to alleviate wheezing and cough. Pt state +PND and cough worsen since 08/26/5017 and has been persistent that she thinks it is exacerbating her asthma. Pt has not taking her BP medication today. Pt had low grade fever at the beginning of symptoms. Pt has taking MUcinex and Tylenol PO to alleviate symptoms. Pt denies SOB, chest pain , abdominal pain, N/V/D.Hx obtained. Pt w/ acute bacterial sinusitis and mild anterior left lung mild wheezing on examination. Pt did an Albuterol Nebulizer Tx about 1hr ago. O2Sat:99%. Pt given Prednisone PO and Doxycycline PO at the clinic . pt tolerated well medications. Pt Rx similar medications and also Rx Tessalon tabs PO and Flonase nasal spray and advised to continue w/ Nebulizer Tx to alleviate cough and wheezing. Pt's BP is elevated today advised to decrease salt in diet, monitor BP and f/u with PCP for further management. Patient recommended to return to the clinic or go to the nearest ER if symptoms do not improve or worsen. Patient understood and agreed w/ plan of care. - Differential Dx/Diagnosis Differential Diagnosis/HQI/PQRI: Sinusitis, URI, Other - pneumonia, bronchitis, asthma exacerbation Provider Diagnoses: 1-Acute Asthma exacerbation. 2-Acute bacterial sinusitis Discharge - Sign-Out/Discharge Documenting (check all that apply): Discharge/Admit/Transfer - D/c home - Discharge Plan Condition: Stable Disposition: HOME Prescriptions: Benzonatate CAP* [Tessalon 100 MG CAP*] 100 mg PO TID #21 cap DOXYcycline CAP(*) [DOXYcycline 100MG CAP(*)] 100 mg PO BID #19 cap Fluticasone NASAL SPRAY 50MCG* [Flonase NASAL SPRAY 50MCG*] 2 spray BOTH NARES DAILY #1 btl predniSONE TAB* [Deltasone TAB*] 20 mg PO DAILY #8 tab Patient Education Materials: Asthma (ED), Sinusitis (ED) Referrals: Silvia Leonardo MANAGER OF RADIOLOGY [Primary Care Provider] - 3 Days Additional Instructions: 1-Please take full course of antibiotic to avoid resistance. 2-Use saline drops and flonase nasal spray to clear your sinuses 3-Take Tessalon PO tabs as directed and continue w/ you nebulizer treatments to alleviate cough. Increase fluid intake, rest and eat well. 4- If symptoms worsen or your develop SOB with fever and severe wheezing please go immediately to the ER further evaluation and treatment. 5- F/u with your PCP in 3 days if not improvement of symptoms for further management. 6-Your BP is elevated today. please decrease salt in your diet, monitor BP and if it continues to be elevated please f/u with your PCP for further management - Billing Disposition and Condition Condition: STABLE Disposition: HOME
[2017-08-30] MEDS ORDERED: predniSONE TAB* 20 MG PO ONE (18:50)
[2017-08-30] MEDS ORDERED: DOXYcycline CAP(*) 100 MG PO ONE (18:50)
== END 2017-08-30 19:20 | disposition home or self-care (01) ==
LOC: UCEAST 18:07
DX: J45.901 Unspecified asthma with (acute) exacerbation (principal); J01.90 Acute sinusitis, unspecified; B96.89 Other specified bacterial agents as the cause of diseases classified elsewhere; I10 Essential (primary) hypertension
CPT/HCPCS: 99212; A9270-GY; G0463; J7512

== ENCOUNTER 2017-10-25 08:58 | Emergency (ER) | payer BC, OTHER ==
--- NOTE | 2017-10-25 09:09 | UC ---
Respiratory Complaint HPI - HPI Summary HPI Summary: 56 yo female presents with cough for the last 3 days. She tells me that she has a hx of bad asthma and bad allergies. She underwent allergy shots for 5 years, but stopped them about 6 months ago and has been battling issues with bronchitis /asthma ever since. Most times her symptoms are managed at home with inhalers, OTC medications, and her nebulizer, but this time she says that her symptoms are improving for a short time but then quickly returning. She said she feels fine other than the cough and mild wheezing. She denies fever, chills, sore throat, chest pain, abdominal pain, n/v. - History of Current Complaint Stated Complaint: COUGH,CONGESTED Time Seen by Provider: 10/25/17 09:04 Hx Obtained From: Patient Onset/Duration: Gradual Onset Severity Currently: None Character: Cough: Nonproductive - Allergies/Home Medications Allergies/Adverse Reactions: Allergies Allergy/AdvReac Type Severity Reaction Status Date / Time Latex, Natural Rubber Allergy Congestion Verified 10/25/17 09:11 mold Allergy Congestion Verified 10/25/17 09:11 trees Allergy Congestion Uncoded 10/25/17 09:11 PMH/Surg Hx/FS Hx/Imm Hx - Additional Past Medical History Additional PMH: Allergies psoriatic arthritis. Endocrine History: Diabetes Cardiovascular History: Hypertension Respiratory History: Asthma - Surgical History Surgical History: Yes Surgery Procedure, Year, and Place: wisdom teeth 1978 [facility]; tubal ligation 1992 [facility]; carpal tunnel 2004 [facility]; de quervain tendonitis 2005 [facility]; NERVE ABLATION - SPINAL; TONSILECTOMY 2014. 33 COLONOSCOPIES; Trigger finger release- right hand - Family History Known Family History: Positive: Cardiac Disease - father - 5 [place], Diabetes, Respiratory Disease - COPD, Other - breast CA, RA, OA, - Social History Occupation: Employed Full-time Lives: With Family Alcohol Use: Weekly Alcohol Amount: 2-3times week Substance Use Type: Marijuana Substance Use Comment - Amount & Last Used: Medical Smoking Status (MU): Never Smoked Tobacco Have You Smoked in the Last Year: No - Immunization History Most Recent Influenza Vaccination: 03/2015 Most Recent Tetanus Shot: 2016 Most Recent Pneumonia Vaccination: 2016 Review of Systems Constitutional: Negative Skin: Negative Eyes: Negative ENT: Negative Respiratory: Shortness Of Breath, Cough Cardiovascular: Negative Gastrointestinal: Negative Neurovascular: Negative Neurological: Negative Psychological: Negative All Other Systems Reviewed And Are Negative: Yes Physical Exam - Summary Physical Exam Summary: GENERAL: NAD. WDWN. No pain distress. SKIN: No rashes, sores, lesions, or open wounds. HEENT: Head: AT/NC Eyes: Conjunctiva clear without inflammation or discharge. Ears: Hearing grossly normal. TMs intact, no bulging, erythema, or edema. Nose: Nasal mucosa pink and moist. NTTP maxillary and frontal sinus. Throat: Posterior oropharynx without exudates, erythema, or tonsillar enlargement. Uvula midline. NECK: Supple. Nontender. No lymphadenopathy. CHEST: Mild wheezing throughout. No r/r. No accessory muscle use. Breathing comfortably and in no distress. CV: RRR. Without m/r/g. Pulses intact. Brisk cap refill. NEURO: Alert. CN II-XII grossly intact. PSYCH: Age appropriate behavior. Triage Information Reviewed: Yes Vital Signs: Vital Signs: Temp Pulse Resp BP Pulse Ox 99.5 F 79 20 138/79 97 10/25/17 09:05 10/25/17 09:05 10/25/17 09:05 10/25/17 09:05 10/25/17 09:05 Vital Signs Reviewed: Yes Respiratory Course/Dx - Course Course Of Treatment: She declined CXR and nebulizer treatment in the clinic. She says that, in the past, prednisone in addition to her at home treatments will resolve her symptoms. Rx for prednisone, refill of nebulizer solution, and cough syrup at bedtime. Advised to f/u if symptoms persist or worsen. - Differential Dx/Diagnosis Provider Diagnoses: Asthma exacerbation. Bronchitis Discharge - Sign-Out/Discharge Documenting (check all that apply): Patient Departure - Discharge Plan Condition: Stable Disposition: HOME Prescriptions: Albuterol 2.5MG/3ML (0.083%)* [Ventolin 2.5 MG/3 ML NEB.GALO*] 2.5 mg INH Q6H PRN #30 neb.galo PRN Reason: Sob/Wheezing Codeine Phosphate/Guaifenesin [Guaifen-Codeine 100-10 mg/5 ml] 5 ml PO BEDTIME PRN #35 ml MDD 5mL PRN Reason: Cough predniSONE [Prednisone 20 MG TAB] 20 mg PO DAILY #12 tablet Patient Education Materials: Asthma (DC) Referrals: Silvia Leonardo NP [Primary Care Provider] - Additional Instructions: If you develop a fever, shortness of breath, chest pain, new or worsening symptoms - please call your PCP or go to the ED. - Billing Disposition and Condition Condition: STABLE Disposition: Home
[2017-10-25 09:10] VITALS: BP 138/79
== END 2017-10-25 09:27 | disposition home or self-care (01) ==
LOC: UCEAST 08:58
DX: J45.901 Unspecified asthma with (acute) exacerbation (principal); Z91.048 Other nonmedicinal substance allergy status; E11.9 Type 2 diabetes mellitus without complications; I10 Essential (primary) hypertension; Z91.040 Latex allergy status
CPT/HCPCS: 99212; G0463

== ENCOUNTER 2018-03-07 12:02 | Emergency (ER) | payer BC, OTHER ==
[2018-03-07 12:29] VITALS: BP 139/86
--- NOTE | 2018-03-07 13:37 | ED ---
Throat Pain/Nasal Congestion - HPI Summary HPI Summary: 57-year-old female presents with sinus congestion for the past week. She states her symptoms have gotten worse. States she has to sleep sitting up due to the postnasal drip. She states she is occasional wheezing due to her asthma. She has a cough. She admits to sore throat and ear pain. She states it feels like pressure in the ears. She admits to headache is worse when she leans forward. She has been using Mucinex and Sudafed. She states she has a history of sinus infections of nosebleeds. - History of Current Complaint Chief Complaint: UCGeneralIllness Time Seen by Provider: 03/07/18 13:30 - Allergies/Home Medications Allergies/Adverse Reactions: Allergies Allergy/AdvReac Type Severity Reaction Status Date / Time Latex, Natural Rubber Allergy Congestion Verified 03/07/18 12:30 mold Allergy Congestion Verified 03/07/18 12:30 trees Allergy Congestion Uncoded 03/07/18 12:30 Home Medications: Home Medications Linagliptin (NF) [Tradjenta (NF)] 5 mg PO DAILY 03/07/18 [History Confirmed 06/20] Potassium Citrate [Potassium Citrate ER] 540 mg PO DAILY WITH MEAL 03/07/18 [ History Confirmed 03/07/18] Rosuvastatin Calcium [Crestor] 10 mg PO DAILY WITH MEAL 03/07/18 [History Confirmed 03/07/18] Simvastatin [Zocor] 20 mg PO DAILY WITH MEAL 03/07/18 [History Confirmed ] PMH/Surg Hx/FS Hx/Imm Hx Endocrine/Hematology History: Reports: Hx Diabetes - PRE- DIABETIC Denies: Hx Thyroid Disease Cardiovascular History: Reports: Hx Hypertension - ON MEDICATION FOR Denies: Hx Angina, Hx Coronary Artery Disease, Hx Hypercholesterolemia, Hx Myocardial Infarction, Hx Pacemaker/ICD, Hx Valvular Heart Disease Respiratory History: Reports: Hx Asthma, Hx Chronic Bronchitis - stopped after Tonsils and Adneods removed Denies: Hx Chronic Obstructive Pulmonary Disease (COPD) GI History: Reports: Hx Gastroesophageal Reflux Disease - ON MEDS, Other GI Disorders - ULCERATIVE COLITIS Denies: Hx Ulcer History: Denies: Hx Renal Disease Musculoskeletal History: Reports: Hx Arthritis - PSORIATIC, Hx Bursitis - HX OF IN SHOULDER, Hx Tendonitis Denies: Hx Osteoporosis Sensory History: Reports: Hx Contacts or Glasses Denies: Hx Cataracts, Hx Eye Injury, Hx Eye Prosthesis, Hx Glaucoma, Hx Legally Blind, Hx Macular Degeneration, Hx Vision Problem, Hx Deafness, Hx Hearing Aid, Hx Hearing Problem, Other Sensory Impairments Opthamlomology History: Reports: Hx Contacts or Glasses Denies: Hx Cataracts, Hx Eye Injury, Hx Eye Prosthesis, Hx Glaucoma, Hx Legally Blind, Hx Macular Degeneration, Hx Vision Problem, Other Sensory Impairments Psychiatric History: Reports: Hx Anxiety - R/T PAIN, Hx Depression - R/T PAIN Denies: Hx Panic Disorder - Cancer History Hx Chemotherapy: No Hx Radiation Therapy: No - Surgical History Surgery Procedure, Year, and Place: wisdom teeth 1978 [facility]; tubal ligation 1992 [facility]; carpal tunnel 2003 [facility]; de quervain tendonitis 2005 [facility]; NERVE ABLATION - SPINAL; TONSILECTOMY 2013. 33 COLONOSCOPIES; Trigger finger release- right hand Hx Anesthesia Reactions: Yes - STATES HAS WOKEN UP DURING THE PROCEDURE IN THE PAST - Immunization History Date of Tetanus Vaccine: Unk Date of Influenza Vaccine: Fall 2012 Infectious Disease History: No Infectious Disease History: Denies: Hx Clostridium Difficile, Hx Hepatitis, Hx Human Immunodeficiency Virus (HIV), Hx of Known/Suspected MRSA, Hx Shingles, Hx Tuberculosis, Hx Known/ Suspected VRE, Hx Known/Suspected VRSA, History Other Infectious Disease, Traveled Outside the [place] in Last 30 Days - Family History Known Family History: Positive: Cardiac Disease - father - 5 [place], Diabetes, Respiratory Disease - COPD, Other - breast CA, RA, OA, - Social History Alcohol Use: Weekly Alcohol Amount: 2-3times week Substance Use Type: Reports: Marijuana Substance Use Comment - Amount & Last Used: Medical Smoking Status (MU): Never Smoked Tobacco Have You Smoked in the Last Year: No Review of Systems Negative: Fever Positive: Sore Throat, Ear Ache, Nasal Discharge Negative: Chest Pain Positive: Cough. Negative: Shortness Of Breath All Other Systems Reviewed And Are Negative: Yes Physical Exam Triage Information Reviewed: Yes Vital Signs On Initial Exam: Initial Vitals Temp Pulse Resp BP Pulse Ox 98.4 F 71 18 139/86 97 03/07/18 12:25 03/07/18 12:25 03/07/18 12:25 03/07/18 12:25 03/07/18 12:25 Vital Signs Reviewed: Yes Appearance: Positive: Well-Appearing Skin: Positive: Warm, Dry Head/Face: Positive: Normal Head/Face Inspection Eyes: Positive: Normal, EOMI, J LUIS, Conjunctiva Clear ENT: Positive: Pharynx normal, Nasal congestion, TMs normal - fluid behind, Sinus tenderness Neck: Positive: Supple, Nontender, No Lymphadenopathy Respiratory/Lung Sounds: Positive: Clear to Auscultation, Breath Sounds Present Cardiovascular: Positive: Normal, RRR Abdomen Description: Positive: Nontender, Soft Bowel Sounds: Positive: Present Musculoskeletal: Positive: Normal Neurological: Positive: Normal Psychiatric: Positive: Normal Diagnostics - Vital Signs Vital Signs Temp Pulse Resp BP Pulse Ox 03/07/18 12:25 98.4 F 71 18 139/86 97 - Laboratory Lab Statement: Any lab studies that have been ordered have been reviewed, and results considered in the medical decision making process. EENT Course/Dx - Course Course Of Treatment: 57-year-old female presents with sinus congestion for the past week. She states her symptoms have gotten worse. States she has to sleep sitting up due to the postnasal drip. She states she is occasional wheezing due to her asthma. She has a cough. She admits to sore throat and ear pain. She states it feels like pressure in the ears. She admits to headache is worse when she leans forward. She has been using Mucinex and Sudafed. She states she has a history of sinus infections of nosebleeds. On exam sinus tenderness present. Pharynx erythematous. Fluid behind TMs. Lungs clear to auscultation. Will place on Augmentin as likely bacterial this point due to length of symptoms. gave Flonase for sinus congestion. has history of HTN and will have follow up with primary about sure. Patient understands agrees with plan. - Differential Diagnoses Differential Diagnoses: Pharyngitis, Sinusitis, URI/Bronchitis - Diagnoses Provider Diagnoses: Sinusitis Discharge - Sign-Out/Discharge Documenting (check all that apply): Patient Departure All imaging exams completed and their final reports reviewed: No Studies - Discharge Plan Condition: Good Disposition: HOME Prescriptions: Amoxicillin/Clavulanate TAB* [Augmentin TAB 875*] 875 mg PO BID #14 tab Fluticasone NASAL SPRAY 50MCG* [Flonase NASAL SPRAY 50MCG*] 2 spray BOTH NARES DAILY #1 btl Patient Education Materials: Sinusitis (ED) Referrals: Silvia Leonardo NP [Primary Care Provider] - Additional Instructions: Take antibiotic twice a day for 7 days take flonase two spray once a day Use saline spray in nose as much as needed Use OTC decongestions Follow up with primary care physician within a week for no improvement Return to ED with any new or worsening symptoms - Billing Disposition and Condition Condition: GOOD Disposition: Home - Attestation Statements Provider Attestation: Per institutional requirements, I have reviewed the chart, however, I was not consulted specifically or made aware of this patient by the midlevel provider. I did not personally evaluate, interact with , or disposition this patient.
== END 2018-03-07 13:47 | disposition home or self-care (01) ==
LOC: UCEAST 12:02
DX: J32.9 Chronic sinusitis, unspecified (principal); R73.03 Prediabetes; I10 Essential (primary) hypertension
CPT/HCPCS: 99212; G0463

== ENCOUNTER 2018-07-08 11:24 | Emergency (ER) | payer BC, OTHER ==
[2018-07-08 11:38] VITALS: BP 125/71
--- NOTE | 2018-07-08 11:51 | UC ---
Respiratory Complaint HPI - HPI Summary HPI Summary: A WEEK AND A HALF OF COUGH, HOARSE VOICE GETTING WORSE. NO FEVER, NAUSEA/ VOMITING. - History of Current Complaint Chief Complaint: UCRespiratory Stated Complaint: COUGH SORE THROAT CONGESTION Time Seen by Provider: 07/08/18 11:41 Hx Obtained From: Patient Hx Last Menstrual Period: na Onset/Duration: Gradual Onset, Lasting Days, Still Present Timing: Constant Severity Initially: Moderate Severity Currently: Moderate Pain Intensity: 4 Pain Scale Used: 0-10 Numeric Character: Cough: Nonproductive Aggravating Factors: Nothing Alleviating Factors: Bronchodilator Associated Signs And Symptoms: Positive: Hoarseness. Negative: Fever, Chills, Wheezing - Allergies/Home Medications Allergies/Adverse Reactions: Allergies Allergy/AdvReac Type Severity Reaction Status Date / Time Latex, Natural Rubber Allergy Congestion Verified 07/08/18 11:39 mold Allergy Congestion Verified 07/08/18 11:39 trees Allergy Congestion Uncoded 07/08/18 11:39 Home Medications: Home Medications Acetaminophen [Pain Reliever] 1,000 mg PO ONCE PRN 07/08/18 [History Confirmed 07/08/18] Albuterol HFA INHALER* [Ventolin HFA Inhaler*] 2 puff INH DAILY 07/08/18 [ History Confirmed 07/08/18] Ibuprofen 1,000 mg PO ONCE PRN 07/08/18 [History Confirmed 07/08/18] PMH/Surg Hx/FS Hx/Imm Hx - Additional Past Medical History Additional PMH: PSORIATIC ARTHRITIS Endocrine History: Diabetes Cardiovascular History: Hypertension Respiratory History: Asthma - Surgical History Surgical History: Yes Surgery Procedure, Year, and Place: wisdom teeth 1978 [facility]; tubal ligation 1992 [facility]; carpal tunnel 2003 [facility]; de quervain tendonitis 2005 [facility]; NERVE ABLATION - SPINAL; TONSILECTOMY 2014. 34 COLONOSCOPIES; Trigger finger release- right hand - Family History Known Family History: Positive: Cardiac Disease - father - 5 [place], Diabetes, Respiratory Disease - COPD, Other - breast CA, RA, OA, - Social History Alcohol Use: Weekly Alcohol Amount: 2-3times week Substance Use Type: Marijuana Substance Use Comment - Amount & Last Used: Medical Smoking Status (MU): Never Smoked Tobacco Have You Smoked in the Last Year: No - Immunization History Most Recent Influenza Vaccination: 03/2015 Most Recent Tetanus Shot: 2016 Most Recent Pneumonia Vaccination: 2016 Review of Systems All Other Systems Reviewed And Are Negative: Yes Constitutional: Positive: Fatigue ENT: Positive: Nasal Discharge Respiratory: Positive: Cough Cardiovascular: Positive: Negative Gastrointestinal: Positive: Negative Physical Exam Triage Information Reviewed: Yes Appearance: Well-Appearing, No Pain Distress, Well-Nourished Vital Signs: Initial Vital Signs Temp 98 F 07/08/18 11:36 Pulse 82 07/08/18 11:36 Resp 17 07/08/18 11:36 BP 125/71 07/08/18 11:36 Pulse Ox 98 07/08/18 11:36 Vital Signs Reviewed: Yes Eyes: Positive: Conjunctiva Clear ENT: Positive: Hearing grossly normal, Pharynx normal, TMs normal, Hoarse voice. Negative: Nasal drainage Neck: Positive: Supple, Nontender, No Lymphadenopathy Respiratory Exam: Normal Cardiovascular Exam: Normal Abdomen Description: Positive: Soft Musculoskeletal: Positive: No Edema Neurological: Positive: Alert Psychological: Positive: Age Appropriate Behavior Skin: Negative: Rashes Respiratory Course/Dx - Differential Dx/Diagnosis Provider Diagnosis: Acute bronchitis Discharge - Sign-Out/Discharge Documenting (check all that apply): Patient Departure All imaging exams completed and their final reports reviewed: No Studies - Discharge Plan Condition: Stable Disposition: HOME Prescriptions: predniSONE TAB* [Deltasone TAB*] 50 mg PO DAILY #5 tab Patient Education Materials: Acute Bronchitis (ED) Referrals: Silvia Leonardo NP [Primary Care Provider] - If Needed Additional Instructions: YOUR SYMPTOMS ARE LIKELY VIRALLY MEDIATED AND SHOULD RESOLVE ON THEIR OWN WITH TIME. NO INDICATION FOR ANTIBIOTICS AT PRESENT. REST, HYDRATE, OTC MEDS NEEDED. WILL TREAT WITH PREDNISONE TO HELP WITH AIRWAY INFLAMMATION. USE YOUR NEBULIZER NEEDED. SEEK FOLLOW-UP IF YOU ARE NOT IMPROVING OVER THE NEXT 1-2 WEEKS. YOU CAN ALSO CALL ME HERE IF YOU FEEL THE PREDNISONE IS NOT WORKING. GIVEN YOUR IMMUNOSUPPRESSIVE MEDICATIONS YOU HAVE AN INCREASED RISK OF INFECTION. I AM HERE WEDNESDAY, WEDNESDAY AND WEDNESDAY OF NEXT WEEK. - Billing Disposition and Condition Condition: STABLE Disposition: Home
== END 2018-07-08 12:30 | disposition home or self-care (01) ==
LOC: UCEAST 11:24
DX: J20.9 Acute bronchitis, unspecified (principal); E11.9 Type 2 diabetes mellitus without complications; J45.909 Unspecified asthma, uncomplicated; I10 Essential (primary) hypertension; Z91.040 Latex allergy status; Z91.09 Other allergy status, other than to drugs and biological substances; Z79.899 Other long term (current) drug therapy
CPT/HCPCS: 99212; G0463